=== PATIENT | male | born 1960 | race Caucasian/White ===

== ENCOUNTER → 2016-10-01 | Outpatient (CLI) | payer OTHER ==
[~2016-10-01] MED LIST: ASPI81TA28 PO; DILT-113 PO; METF1TAB53 PO; OMEG10007 PO
--- NOTE | 2016-10-01 16:01 | DIAGNOSTIC IMAGING REPORT ---
LEFT KNEE 1 OR 2 VIEWS ROUTINE, RIGHT KNEE 1 OR 2 VIEWS ROUTINE CLINICAL HISTORY: SWELLING IN BOTH KNEES COMPARISON STUDY: None. FINDINGS: No fracture or dislocation within the right or left knee. Moderate cartilage space narrowing and small marginal osteophytes within the bilateral medial compartments of the knees. No significant knee effusions. Soft tissues are within normal limits. IMPRESSION: Moderate osteoarthritis within the medial compartment of the bilateral knees. No significant knee effusions. Electronically signed by: Manuel Jimenez M.D. 10/01/2016 4:00 PM Dictated Date/Time: 10/01/2016 3:57 PM
== END | disposition home or self-care (01) ==
LOC: C.RAD 15:17
PROVIDERS: ATTEND Nurse Practitioner
DX: M17.0 Bilateral primary osteoarthritis of knee (principal); Z68.37 Body mass index [BMI] 37.0-37.9, adult; M79.89 Other specified soft tissue disorders

== ENCOUNTER 2024-07-23 09:57 | Observation (INO) ==
--- NOTE | 2024-06-25 10:50 | PAT Medication Instructions ---
Medication Instructions Date of Service June 25, 2024 Home Medications Medication Instructions Recorded atorvastatin 40 mg tablet 40 mg PO QAM #90 tabs 02/27/24 lisinopril 5 mg tablet 5 mg PO QAM #90 tabs 02/27/24 empagliflozin 25 mg tablet 25 mg PO QAM #90 tabs 03/29/24 (Jardiance) aspirin 81 mg chewable tablet 81 mg PO QAM omega 7-hfm-vqn-fish oil 1,000 mg (120 mg-180 mg) capsule (Fish Oil) 1 cap PO QAM Centrum Silver Men 1 tab PO QAM atorvastatin 40 mg tablet 40 mg PO QAM lisinopril 5 mg tablet 5 mg PO QAM empagliflozin 25 mg tablet (Jardiance) 25 mg PO QAM cholecalciferol (vitamin D3) 50 mcg (2,000 unit) capsule 50 mcg PO QAM tirzepatide 5 mg/0.5 mL subcutaneous pen injector (Mounjaro) 5 mg subcut UD ASK your prescriber and surgeon aspirin 81 mg chewable tablet 81 mg PO QAM STOP taking 2 weeks before surgery (or as soon as possible if surgery is within 2 weeks) omega 0-avl-lmr-fish oil 1,000 mg (120 mg-180 mg) capsule (Fish Oil) 1 cap PO QAM STOP 7 days prior to surgery tirzepatide 5 mg/0.5 mL subcutaneous pen injector (Mounjaro) 5 mg subcut UD STOP taking 3 days before surgery empagliflozin 25 mg tablet (Jardiance) 25 mg PO QAM DO NOT take the morning of surgery Centrum Silver Men 1 tab PO QAM lisinopril 5 mg tablet 5 mg PO QAM cholecalciferol (vitamin D3) 50 mcg (2,000 unit) capsule 50 mcg PO QAM Take morning of surgery With a small sip of water, OTHERWISE NOTHING TO EAT OR DRINK AFTER MIDNIGHT: atorvastatin 40 mg tablet 40 mg PO QAM Other Notes If you have any questions please call us at [phone] or [phone] or [phone] or [phone]
--- NOTE | 2024-06-30 10:37 | Anesthesiology Consultation ---
Date of Service June 30, 2024 Assessment & Plan (1) Encounter for pre-operative examination: Plan - check BSG am DOS. - PCP pre-operative evaluation 06/29/24 [place]: "...preoperative clearance for an upcoming bilateral knee replacement surgical intervention...After a careful review of his chart, evaluation of his medical file, and a thorough physical examination, I have found that he is an acceptable risk surgical candidate given his cardiac, pulmonary, Infectious and functional capacity. At this time, patient is medically cleared. After careful discussion of risks and benefits of surgical intervention, Mr. Sanchez wishes to pursue the proposed surgical intervention..." - bilat TKA discussion vs staged and patient wishes to proceed with bilat TKA. - tirzepatide instructions: Patient informed at PAT visit to stop 7 days prior to surgery- voiced understanding. Patient advised to check with prescriber to see if alternative diabetic management changes recommended while holding tirzepatide- if so, patient to call back to [facility] to update chart and discuss if any further preop medication instructions needed. Chart Review Chart Review: Acceptable Risk for Surgery and Patient seen in Pre Admission Testing Teaching & Discussion Pre-Anesthesia Teaching/Discussion Notes: Instructed NPO after midnight before surgery, except medications with 15 cc of water. Medication instructions provided according to the PAT guidelines. History Surgery Operation Date: 07/23/24 08:00 Proposed Procedures p Bilateral Total Knee Arthroplasty - Juan Antonio Strickland DO Height/Weight Height: 6 ft 1 in Weight: 97.7 kg Allergies Allergy/AdvReac Type Severity Reaction Status Date / Time metformin Allergy Intermediate Rash Verified 06/29/24 08:58 Medications Home Medications Medication Instructions Recorded Confirmed Last Taken aspirin 81 mg chewable tablet 81 mg PO QAM 06/10/20 06/29/24 09/14/22 omega 1-lnx-edi-fish oil 1,000 mg 1 cap PO QAM 06/10/20 06/29/24 09/14/22 (120 mg-180 mg) capsule (Fish Oil) xoyqwziq-it-nhrqe 300 mcg-K 60 1 tab PO QAM 12/06/21 06/29/24 09/14/22 mcg-lycop 600 mcg-lutein 300 mcg tablet (Centrum Silver Men) atorvastatin 40 mg tablet 40 mg PO QAM #90 tabs 02/27/24 06/29/24 Unknown lisinopril 5 mg tablet 5 mg PO QAM #90 tabs 02/27/24 06/29/24 Unknown empagliflozin 25 mg tablet 25 mg PO QAM #90 tabs 03/29/24 06/29/24 Unknown (Jardiance) cholecalciferol (vitamin D3) 50 50 mcg PO QAM 06/23/24 06/29/24 Unknown mcg (2,000 unit) capsule tirzepatide 5 mg/0.5 mL 5 mg subcut UD 06/23/24 06/29/24 Unknown subcutaneous pen injector (Bienvenidounfatoumata) Past Medical History Medical History (Updated 07/01/24 @ 08:47 by Maude Marin PA-C) CKD (chronic kidney disease) per records, patient denies, states was referred to nephrology and no need to follow up, monitoring with PCP Diabetes mellitus, type 2 NIDDM Electrocution and nonfatal effects of electric current (~1985) denies residual effects History of COVID-19 (~2020) severe flu like symptoms, severe headache, severe SOB and cough, fatigue, loss of appetite. no hospitalization at that time. History of gout History of kidney stones passed on own Hypertension controlled, stable per pt Low back pain chronic, denies change or worsening Osteoarthritis Patient denies h/o stroke, seizures, heart attack, heart failure, blood clots/DVTs or blood transfusions. 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 Patient denies chest pain, shortness of breath, dyspnea on exertion, reflux, fever, chills, cough, wheezing, or palpitations. Physical Exam Vital Signs Vitals BP 102/65 P 79 TEMP 98.5 SP02 96% on RA RESP 18 Physical Patient resting comfortably in chair in no acute distress, alert and oriented, responding appropriately throughout visit Full cervical extension range of motion without pain TMD 3.5 finger breadths Mallampati Score 3 Dentition: several crowns and a bridge, denies chipped or loose teeth, caps, or implants Lungs: normal respiratory effort. Good air movement, clear throughout to auscultation, no adventitious breath sounds Cardiac: regular rate and rhythm, no murmurs noted Carotid arteries: negative bruit bilat Lab Results Anesthesia Preop Results Results Anesthesia Widget: WBC 6.54 K/ul (4.8-10.8) 06/30/24 Hgb 13.7 g/dl (14.0-18.0) L 06/30/24 Hct 43.2 % (42.0-52.0) 06/30/24 Plt 198 K/uL (130-400) 06/30/24 Na 138 mmol/L (136-145) 06/30/24 K 4.5 mmol/L (3.5-5.1) 06/30/24 Cl 104 mmol/L (98-107) 06/30/24 CO2 28 mmol/L (21-32) 06/30/24 BUN 27 mg/dl (6-23) H 06/30/24 Creat 1.27 mg/dl (0.6-1.4) 06/30/24 Glucose Level 108 mg/dl (70-99(Fasting)) H 06/30/24 PT 11.4 Seconds (9.0-12.0) 06/30/24 PTT 26 Seconds (21-31) 06/30/24 INR 1.1 (0.9-1.1) 06/30/24 HA1c 6.1 % (4.5-5.6) H 06/30/24 Blood Type A Positive 06/30/24 Antibody Screen NEGATIVE 06/30/24 Testing Electrocardiogram Date: 06/30/24 NSR, rate 77 bpm Chest X-Ray Date: 06/30/24 No acute cardiopulmonary findings.
[~2024-07-23 09:57] MED LIST changes: -ASPI81TA28 PO; -DILT-113 PO; -METF1TAB53 PO; -OMEG10007 PO; +ROPIVACAINE 0.5% 5 MG/ML 30 ML VIAL ONE
[2024-07-23] MEDS: SODIUM CHLORIDE 0.9% 1,000 ML IV SCH (10:30)
[2024-07-23] MEDS: dexAMETHasone**PF** 10 MG/ML VIAL IV SCH (10:43)
[2024-07-23] MEDS: LR 500ML BOLUS, THEN 15ML/HR IV SCH (10:44)
[2024-07-23] MEDS: ACETAMINOPHEN 500 MG TAB PO SCH (10:44)
[2024-07-23] MEDS: GABAPENTIN 600 MG DOSE PO SCH (10:44)
[2024-07-23] MEDS: LR 60ML/HR IV SCH (10:44)
[2024-07-23] MEDS: FAMOTIDINE 20 MG TAB PO SCH (10:44)
[2024-07-23] MEDS ORDERED: PROPOFOL IV EMULSION 10 MG/ML 20 ML VIAL IV ONE ×3 (11:04→14:05)
[2024-07-23] MEDS ORDERED: MIDAZOLAM HCL 1 MG/ML 2ML VIAL ONE ×2 (11:05→14:40)
[2024-07-23] MEDS ORDERED: BUPIVACAINE 0.5 % 5 MG/1 ML PF 10ML VIAL ONE (11:24)
--- NOTE | 2024-07-23 12:00 | History & Physical Bridge Note ---
Date of Service July 23, 2024 History & Physical Bridge Note I have examined the patient, reviewed the History & Physical and in the interval since the performance of the History & Physical I have noted the following changes of clinical significance: no changes noted
[2024-07-23] MEDS: TRANEXAMIC ACID 1,000 MG **IV Pre-op IV SCH (12:40)
[2024-07-23] MEDS: ceFAZolin 2000MG 2,000 MG/15 ML SYR IV SCH ×2 (12:55→21:23)
[2024-07-23] MEDS: ORTHO JOINT ANESTHETIC ONE (13:46)
[2024-07-23] MEDS ORDERED: PHENYLEPHRINE 100MCG/ML 5ML SYR ONE (14:15)
[2024-07-23] MEDS: ROPIV 0.5% 246mg, Ketorolac 30mg, EPINEPHrine 0.5mg in NSS INFIL SCH (14:42)
[2024-07-23] MEDS: TRANEXAMIC ACID 1,000 MG **IV Intra-op IV SCH (14:55)
--- NOTE | 2024-07-23 15:27 | Operative Report ---
PG Post Operative Report Pre & Post Diagnosis Operation Date: 07/23/24 12:00 Pre-Op Diagnosis: Bilateral Knee Osteoarthritis Post-Op Diagnosis: Bilateral Knee Osteoarthritis I identified the patient and participated in the time-out.: Yes Procedure Operation Date: 07/23/24 12:00 Actual Procedures p Bilateral Total Knee Arthroplasty(Bilateral) - Juan Antonio Strickland DO Surgeon Juan Antonio Strickland DO Patient Support Assistant Shant Flores PA-C Estimated Blood Loss 60 Findings Consistent with Post-Op Diagnosis Specimens Bilateral femoral and tibial bone Description of Procedure Brad arrived [facility] for the above procedure. He was seen in the preoperative holding area and both knees were identified and signed. He was given a preoperative antibiotic, TXA, a spinal anesthetic and adductor nerve blocks. He was taken back to the operating room and laid on the table in supine position. He was given basic sedation. Both knees were then prepped and draped in sterile fashion. A timeout was done, and the patient and the operative extremities were properly identified. Right knee implants used: I used a Sen Persona total knee arthroplasty system with a size 10 standard PS femur, G tibia, 34 oval patella, and a size 12 CPS polyethylene bearing. All components were cemented in place with Palacos G cement. A midline incision was made directly over the patella. Dissection was taken down to the extensor mechanism. A medial parapatellar arthrotomy was used. The medial retinaculum was released and the fat pad was mostly excised. The knee was flexed and the ACL, PCL, and meniscus were removed. A drill was sent down the center of the femoral canal followed by an intramedullary konrad. Off that konrad a distal femoral cutting block was placed. 9 mm was resected off the distal femur at 5 of valgus. A posterior referencing AP sizing guide was then placed on the distal femur. The femur measured to be a size 10. 2 drill holes were placed in 3 of external rotation. A 4-in-1 cutting block was then impacted into place. Anterior, posterior, and chamfer cuts were then made. The proximal tibia was then exposed. An external tibial alignment guide was placed. A tibial cut guide was then anchored in place and the proximal tibia was then resected. The posterior aspect of the knee was then opened up and any additional meniscus fragments and osteophytes were removed. The tibia measured to be a size G. The tibial plate was then placed in the appropriate rotation and the tibia was drilled and punched. Trial components were then placed. I used a size 12 CPS polyethylene insert. The knee was brought through a full range of motion and felt to be stable. The peg holes for the femur were then drilled. The patella was then everted and 9 mm was resected off the posterior aspect of the patella. The patella measured to be a size 34 oval. 3 peg holes were then drilled. A trial patella was placed. The knee was once again brought through a full range of motion and felt to be stable. Trial components were then removed. The surrounding soft tissues were injected with 50 cc of an orthopedic pain control cocktail. All components were then cemented into place with Palacos G cement. The final polyethylene insert was then snapped into place. Once cement was dry the tourniquet was deflated. Hemostasis was obtained. A dilute betadyne lavage was then done for 3 minutes. The joint was then irrigated with normal saline solution. The medial parapatellar arthrotomy was then closed with #1 Vicryl suture. The skin was closed with 2-0 Vicryl, 3-0V lock suture, and radha. A Silverlon and a soft compressive dressing were placed. Left knee implants used: I used a Sen Persona total knee arthroplasty system with a size 10 standard PS femur, G tibia, 34 oval patella, and a size 12 CPS polyethylene bearing. All components were cemented in place with Palacos G cement. A midline incision was made directly over the patella. Dissection was taken down to the extensor mechanism. A medial parapatellar arthrotomy was used. The medial retinaculum was released and the fat pad was mostly excised. The knee was flexed and the ACL, PCL, and meniscus were removed. A drill was sent down the center of the femoral canal followed by an intrame dullary konrad. Off that konrad a distal femoral cutting block was placed. 9 mm was resected off the distal femur at 5 of valgus. A posterior referencing AP sizing guide was then placed on the distal femur. The femur measured to be a size 10. 2 drill holes were placed in 3 of external rotation. A 4-in-1 cutting block was then impacted into place. Anterior, posterior, and chamfer cuts were then made. The proximal tibia was then exposed. An external tibial alignment guide was placed. A tibial cut guide was then anchored in place and the proximal tibia was then resected. The posterior aspect of the knee was then opened up and any additional meniscus fragments and osteophytes were removed. The tibia measured to be a size G. The tibial plate was then placed in the appropriate rotation and the tibia was drilled and punched. Trial components were then placed. I used a size 12 CPS polyethylene insert. The knee was brought through a full range of motion and felt to be stable. The peg holes for the femur were then drilled. The patella was then everted and 9 mm was resected off the posterior aspect of the patella. The patella measured to be a size 34 oval. 3 peg holes were then drilled. A trial patella was placed. The knee was once again brought through a full range of motion and felt to be stable. Trial components were then removed. The surrounding soft tissues were injected with 50 cc of an orthopedic pain control cocktail. All components were then cemented into place with Palacos G cement. The final polyethylene insert was then snapped into place. Once cement was dry the tourniquet was deflated. Hemostasis was obtained. A dilute betadyne lavage was then done for 3 minutes. The joint was then irrigated with normal saline solution. The medial parapatel lar arthrotomy was then closed with #1 Vicryl suture. The skin was closed with 2-0 Vicryl, 3-0V lock suture, and radha. A Silverlon and a soft compressive dressing were placed. He was then transferred to a hospital bed and taken to the postanesthesia care unit in stable condition. He tolerated the procedure well. Shant Flores PA-C, was present for the entire procedure. He was critical for patient positioning, prepping, draping, retraction exposure, wound closure and application of sterile dressing. I attest to the content of the Intraoperative Record and any orders documented therein. Any exceptions are noted below.
--- NOTE | 2024-07-23 16:08 | XRay Report ---
EXAM: Radiographs of the Right Knee 1 or 2 Views INDICATION: Postoperative replacement. TECHNIQUE: Frontal and lateral views of the right knee. COMPARISON: No relevant prior studies available. FINDINGS: Bones/joints: Satisfactory appearance of total knee arthroplasty components. No fracture, subluxation or dislocation. Soft tissues: Expected postoperative gas and swelling in and about the joint. IMPRESSION: Satisfactory appearance of knee arthroplasty. ACT 112: Negative or not required by law. Electronically signed by Candy Dupree 07-23-2024 4:07 PM
--- NOTE | 2024-07-23 16:08 | XRay Report ---
EXAM: Radiographs of the Left Knee 2 Views INDICATION: Postoperative assessment. TECHNIQUE: Frontal and lateral views of the left knee. COMPARISON: No relevant prior studies available. FINDINGS: Bones/joints: Satisfactory appearance of total knee arthroplasty components. No subluxation, dislocation or fracture. Soft tissues: Expected postoperative gas and swelling noted within and about the joint. IMPRESSION: Satisfactory appearance of knee arthroplasty. ACT 112: Negative or not required by law. Electronically signed by Candy Dupree 07-23-2024 4:08 PM
--- NOTE | 2024-07-23 16:15 | Anesthesiology Progress Note ---
Date of Service July 23, 2024 Anesthesia Post Procedure Vital Signs Vital Signs: Temp Pulse Pulse Resp BP Pulse Ox O2 Del Method 07/23/24 16:00 75 14 119/69 92 Room Air 07/23/24 15:50 78 18 105/72 93 Room Air 07/23/24 15:40 36.8 C 83 20 116/59 L 93 Room Air 07/23/24 10:23 36.8 C 85 18 159/84 H 96 Room Air Pain Intensity Bilateral Knee: Pain Intensity: 5 Transfer of Care Handoff Completed per policy Notes Mental Status: alert / awake / arousable and participated in evaluation Patient Amnestic to Procedure: Yes Nausea / Vomiting: adequately controlled Pain: adequately controlled Airway Patency, RR, SpO2: stable & adequate BP & HR: stable & adequate Hydration State: stable & adequate Anesthetic Complications: no major complications apparent and Pt Satisfied with anesthetic care
[2024-07-23] MEDS ORDERED: HYDROmorphone INJ 0.5 MG/0.5 ML SYR IV PRN (17:03)
[2024-07-23] MEDS ORDERED: METOCLOPRAMIDE HCL INJ 5 MG/ML 2 ML VIAL IV PRN (17:03)
[2024-07-23] MEDS ORDERED: bisacodyL 10 MG SUPP PR PRN (17:03)
[2024-07-23] MEDS ORDERED: ONDANSETRON INJ 2 MG/ML 2 ML VIAL IV PRN (17:03)
[2024-07-23] MEDS ORDERED: NALOXONE HCL 0.4 MG/1 ML VIAL/CARP IV PRN (17:03)
[2024-07-23] MEDS ORDERED: MAGNESIUM HYDROXIDE SUSP 30 ML UDC PO PRN (17:03)
[2024-07-23] MEDS: KETOROLAC 30 MG/ML VIAL IV SCH (18:05)
[2024-07-23] MEDS: ASPIRIN 81 MG ECTAB PO SCH (21:23)
[2024-07-23] MEDS: SENNA 8.6 MG TAB PO SCH (21:23)
[2024-07-23] MEDS: DOCUSATE SODIUM 100 MG CAP PO SCH (21:23)
[2024-07-24] MEDS: dexAMETHasone 4 MG TAB PO SCH (08:24)
[2024-07-24] MEDS: CHOLECALCIFEROL 25 MCG (1000 UNITS) TAB PO SCH (08:24)
[2024-07-24] MEDS: lisinopril 5 MG TAB PO SCH (08:24)
[2024-07-24] MEDS: ATORVASTATIN 40 MG TAB PO SCH (08:24)
[2024-07-24] MEDS: MULTIVITAMIN TAB PO SCH (08:25)
--- NOTE | 2024-07-24 09:54 | Orthopedic Progress Note ---
Date of Service July 24, 2024 Assessment & Plan (1) Status post bilateral knee replacements: Overall she is doing fairly well. He is not having much pain in his knees. He will be seen by physical therapy today for ambulation and range of motion exercises. If he does well with physical therapy he can be discharged home today. The nursing staff can change his dressings after physical therapy. He will follow-up with orthopedics in 2 weeks. He is on aspirin for DVT prophylaxis. Alli Salinas was seen and examined at bedside this morning. Overall he is doing very well. He is not having much pain in his knees. He has been up and ambulating to the bathroom. He has no complaints.. Review of Systems All systems reviewed & are unremarkable except as noted in HPI & below. Physical Exam On physical exam with his knees, his legs are held full extension. The dressings are clean and dry. He has active dorsiflexion plantarflexion of his ankles.. Results & Data Results & Data Laboratory Results . Diagnostic Findings X-rays of both knees show the prosthesis to be in anatomic alignment without any evidence of fracture, dislocation, or loosening.. PG Care Time/CCT Total # of Minutes Spent Total Time Spent with Patient: Total time spent is greater than 50% in coordination of care (as documented) at patient's floor/unit and/or counseling patient: Coding Level of Care Code 41106 Post Operative Follow-Up Diagnoses Status post bilateral knee replacements Z96.653
[2024-07-24] MEDS: oxyCODONE HCL IR 5 MG TAB (IMMEDIATE RELEASE) PO PRN (11:11)
--- NOTE | 2024-07-24 17:27 | Discharge Summary ---
Date of Service July 24, 2024 Principal Diagnosis Same as "Discharge Diagnosis" noted below under Discharge Instructions. Discharge Exam On physical exam with his knees, his legs are held full extension. The dressings are clean and dry. He has active dorsiflexion plantarflexion of his ankles.. Discharge Data Procedures Performed Operation Date: 07/23/24 12:00 Actual Procedures p Bilateral Total Knee Arthroplasty(Bilateral) - Juan Antonio Strickland DO Ordered Studies 07/23/24 05:00 US - OR guided needle placemen Routine Hospital Course (1) Status post bilateral knee replacements: On July 23, 2024 Brad arrived at [facility] and underwent bilateral knee replacements without complication. He had a spinal anesthetic. Postoperatively he was started on aspirin for DVT prophylaxis and transferred to the general orthopedic floors. His hospital course was uneventful. On postop day #1, his vital signs were stable and his pain was well-controlled. He was able to participate well with physical therapy doing ambulation and range of motion exercises. He was then discharged to home. He will follow-up with orthopedics in 2 weeks. PG Care Time/CCT Total # of Minutes Spent Total Time Spent with Patient: Total time spent is greater than 50% in coordination of care (as documented) at patient's floor/unit and/or counseling patient: Discharge Plan Discharge Items Patient Disposition: Home - Self-Care Reason For Visit: Bilateral Knee Arthritis Discharge Diagnosis: Bilateral knee replacements Activity: As commented below Non-emergency contact: Surgeon Call non-emergency contact if: your wound has increased redness and your wound has increased drainage Follow-up/Referrals: Cipriano Kaye CRNP [Primary Care Provider] - Diet: Regular Addtl Attending Provider Instructions: Activity and Therapy Recommendations: * If you are using [facility] then therapy will be provided at your home until they feel you have accomplished all of your goals. * If you are using [facility] then Physical Therapy will be provided until they feel you are ready to start Outpatient Physical Therapy. * If you are not using home therapy then Outpatient Physical Therapy should start about 3-5 days from your day of surgery. Therapy will last about 6-10 weeks * It is important not to put a pillow under your knee when you are relaxing or sleeping. It is just as important to make sure you are getting your knee perfectly straight as it is to regain your knee bend. * You were shown a series of exercises in the hospital. Do these exercises three times each day including the exercises you were shown in physical therapy. * Get up and walk several times each day. For the first four weeks, try not to stand or walk for more than one hour at a time. If you do stand or walk for more than one hour, you will not hurt anything, but your leg will likely swell. * As you feel comfortable, you may change from the walker or crutches to a cane and then to independent walking. Medications: * Narcotic You will likely be sent home from the hospital with a prescription for the narcotic pain medication that worked best throughout your stay. * Cefadroxil -take the antibiotic twice a day for 10 days to help prevent infection. * Aspirin Most patients will be required to take Aspirin 81mg twice a day for 6 weeks after surgery. This is obtained [id number] and a prescription is not necessary. * Other medications may be prescribed for specific circumstances. If you have any questions, please call the office at . * Resume previous home medications unless otherwise instructed TEDs/Elastic Stockings: The white elastic stockings help limit swelling and prevent blood clots from forming in your legs.~ The more you wear them, the more they work. Wear them for six weeks. Dressing Care: The dressing can be changed after physical therapy on postop day #1. Daily dry dressing changes for a few days, especially if the incision is still draining some. If the incision is not draining then you may leave the radha open to air. If there is a little bit of drainage or if the radha are getting stuck on your clothing then cover the incision with a dry dressing. The radha will be removed at your 2 week follow-up appointment. Showering: You may shower 5 days from the day of surgery as long as the incision is no longer draining. You may shower with the radha exposed. Let soapy water run over the radha and pat them dry. Do not scrub or soak the incision. Diet: You may resume your previous diet. Things To Watch For: * Drainage from the incision site that occurs more than one week after your surgery. * Increased redness at the incision site. * Fever above 102 degrees Fahrenheit. * Unusual chest pain or shortness of breath. * Call [facility] at with any of the above problems Follow-Up Visit: Follow-up with Dr. Strickland's office 2-3 weeks after your day of surgery. We will remove your radha and answer any questions. If you have any additional questions or concerns, Dr Strickland is usually in the office at the same time and will be available An appointment was probably scheduled when you signed-up for surgery in the office. If you have any questions call Office Instructions: More detailed instructions as well as Frequently Asked Questions were provided in a folder by our office when you signed-up for surgery. Please review these instructions when you get home. If you have any further questions or concerns, please feel free to call the office at [phone] Pending Studies at Discharge: No Stand-Alone Forms: My [facility] Medications and DC Order Prescriptions: New oxycodone 5 mg tablet 5 mg PO Q6H PRN (Reason: pain) Qty: 30 0RF cefadroxil 500 mg capsule 500 mg PO BID 10 Days Qty: 20 0RF Continued atorvastatin 40 mg tablet 40 mg PO QAM Qty: 90 1RF Patient Comments: pt unsure if he is still on lisinopril 5 mg tablet 5 mg PO QAM Qty: 90 2RF Jardiance 25 mg tablet 25 mg PO QAM Qty: 90 1RF (DME) kris Mccormick See Rx Instructions .MEDSUPPLY Qty: 1 0RF Rx Instructions: As directed (DME) kris Mccormick See Rx Instructions .MEDSUPPLY Qty: 1 0RF Rx Instructions: As directed Centrum Silver Men 300-600-300 mcg tablet 1 tab PO QAM omega [id number] oil [Fish Oil] 1,000 mg (120 mg-180 mg) Capsule 1 cap PO QAM cholecalciferol (vitamin D3) 50 mcg (2,000 unit) capsule 50 mcg PO QAM Mounjaro 5 mg/0.5 mL pen injector 5 mg subcut UD Patient Comments: every 2 weeks, , last dose 06/10/2024 Changed aspirin 81 mg Tablet,Chewable 81 mg PO BID 42 Days Qty: 0 0RF Discharge Orders: Discharge Order (Routine); Ordered 07/24/24 Ordered By: Juan Antonio Strickland Admission Data Admit Date/Time: 07/23/24 15:30 Attending Provider: Juan Antonio Strickland Admit Provider: Juan Antonio Strickland Primary Care Provider: Cipriano Kaye Other Interventions: Discharge Summary Assessment (RN) Last Done: 07/24/24 12:06
== END 2024-07-24 12:07 | disposition home or self-care (01) ==
LOC: 3E 09:57 → ASU 09:57